=== PATIENT | female | born 1975 | race Two or more races ===

== ENCOUNTER 2022-02-09 05:00 | Day surgery (SDC) | payer OTHER ==
[~2022-02-09] VITALS: Ht 167.6 cm; Wt 84.8 kg
[~2022-02-09 05:00] MED LIST: ADDERALL 5 MG TA5 MG PO; OZEMPIC0.25 MG/0.; SYNTHROID112 MCG PO; VYVANSE40 MG PO
== END 2022-02-09 14:35 | disposition home or self-care (01) ==
LOC: CIR.AMB 05:00
PROVIDERS: ATTEND Obstetrics & Gynecology
DX: N84.0 Polyp of corpus uteri (principal); N93.9 Abnormal uterine and vaginal bleeding, unspecified; R93.89 Abnormal findings on diagnostic imaging of other specified body structures; I87.2 Venous insufficiency (chronic) (peripheral); E66.09 Other obesity due to excess calories; Z20.822 Contact with and (suspected) exposure to COVID-19